=== PATIENT | female | born 1980 | race Caucasian/White ===

== ENCOUNTER → 2018-04-10 14:35 | Outpatient (CLI) | payer OTHER, SELFPAY | PROVIDERS: Visit Provider Physician Assistant | DX: R30.0 Dysuria (principal) | CPT/HCPCS: 87077; 87086; 87186 ==

== ENCOUNTER → 2018-06-06 08:52 | Outpatient (CLI) | payer OTHER, SELFPAY ==
--- NOTE | 2018-06-06 08:52 | DI.US.S_ITS ---
ULTRASOUND OF LEFT BREAST: 06/06/2018 CLINICAL: Nipple discharge, left breast, not bloody. Comparison is made to exam dated: 06/06/2018 mammogram - [facility]. Real-time and Doppler ultrasound of the left breast were performed. Leigh scale images of the real-time examination were reviewed. There is a 1.5 x 1.2 x 1.1 cm complex cyst or cystic mass in the retroareolar region of the left breast central to the nipple. This complex cyst or cystic mass demonstrates internal septations, a 0.4 x 0.3 x 0.3 echogenic component with posterior shadowing that may represent calcifications or a soft tissue component, and appears to communicate with a dilated retroareolar breast duct. There is a 0.9 x 0.5 x 0.5 cm oval indistinct hypoechoic possible mass in the left breast at 5 o'clock position 5 cm from the nipple that was initially detected on ultrasound but subsequently resolved over the course of the exam and could no longer be seen at exam conclusion. No other masses or abnormalities were identified on this exam. IMPRESSION: SUSPICIOUS OF MALIGNANCY - FOLLOW-UP RECOMMENDED 1) 1.5 cm complex cyst or cystic mass in the retroareolar left breast, which may be related to the patient's reported left nipple discharge. An ultrasound guided biopsy is recommended. If the pathology from this biopsy does not adequately explain the reported findings or does not contain the calcifications seen on comparison mammography, a stereotactic biopsy at that time may be considered if clinically warranted. 2) 0.9 cm possible mass in the left breast at 5 o'clock position 5 cm from the nipple that was initially detected on ultrasound but subsequently resolved over the course of the exam and could no longer be seen at exam conclusion; this may have represented collected debris within a dilated duct. Consider follow-up diagnostic ultrasound in 6 months if this finding is not adequately explained by the biopsy suggested above. These results and recommendations were discussed with the patient at the time of the exam by Dr. Antonio Hays of [facility] in person. This exam was interpreted at Station ID: [id number]. Electronically Signed By: Steve Serrano M.D. ecl/:06/06/2018 19:27:36 letter sent: Biopsy Required Ultrasound BI-RADS: 4a Suspicious abnormality - low suspicion for malignancy
--- NOTE | 2018-06-06 08:52 | DI.MG.S_ITS ---
BILATERAL DIGITAL DIAGNOSTIC MAMMOGRAM 3D/2D: 06/06/2018 CLINICAL: Baseline exam. Left breast discharge. No prior exams were available for comparison. The tissue of both breasts is heterogeneously dense. This may lower the sensitivity of mammography. There is a 1.0 cm oval indistinct focal asymmetry in the left breast central to the nipple at retroareolar depth with associated 0.3 cm area of grouped punctate calcifications. There is a 0.5 cm oval circumscribed focal asymmetry in the lower outer left breast at posterior depth. No other significant masses, calcifications, or other findings are seen in either breast. IMPRESSION: INCOMPLETE: NEEDS ADDITIONAL IMAGING EVALUATION 1) 1.0 cm focal asymmetry in the left breast central to the nipple at retroareolar depth with associated 0.3 cm area of grouped punctate calcifications. This may be related to patient's reported left breast discharge. Targeted ultrasound recommended for further evaluation. 2) 0.5 cm focal asymmetry in the lower outer left breast at posterior depth. Targeted ultrasound recommended for further evaluation. This exam was interpreted at Station ID: [id number]. NOTE: For mammograms, a report in lay terms will be sent to the patient. Approximately 15% of breast malignancies will not be visualized mammographically. In the management of a palpable breast mass, a negative mammogram must not discourage biopsy of a clinically suspicious lesion. Electronically Signed By: Steve Serrano M.D. ecl/:06/06/2018 19:13:46 letter sent: Additional Imaging Needed ACR BI-RADS Category 0: Incomplete 3340F
== END ==
PROVIDERS: Visit Provider Physician Assistant
DX: R92.1 Mammographic calcification found on diagnostic imaging of breast (principal); N64.52 Nipple discharge; N60.02 Solitary cyst of left breast
CPT/HCPCS: 76642; 77066; G0279

== ENCOUNTER → 2018-07-01 12:35 | Outpatient (CLI) | payer OTHER, SELFPAY ==
--- NOTE | 2018-07-01 | PATH_ITS ---
Note [facility] Accession Number: [id number] TESTS RESULT FLAG UNITS REF RANGE LAB Clinician Provided Cytology Information No. of containers..01 ThinPrep Vial 01 LEFT BREAST CYST DIAGNOSIS: LEFT BREAST CYST INCONCLUSIVE. PAPILLARY GROUPS WITH APOCRINE CHANGE ARE PRESENT. FINDINGS ARE SUSPICIOUS FOR A PAPILLARY LESION WITH APOCRINE FEATURES. A CELL BLOCK IS REVIEWED. Pathologist ICD10: 02 N63.20 02 Peggy Edwards MD, Pathologist NPI- [id number] Red Robles, Pump Installer ([facility]) 01 0.5 CC, BROWN, CLOUDY /LCS FLAG LEGEND: L-Low Normal,H-High Normal,LL-Alert Low,HH-Alert High <-Panic Low,>-Panic High,A-Abnormal,AA-Critical Abnormal Performed at: 01 =Z [facility] [address], [place] [address] Jac Larsen MD, 02 LCLWA [facility] [address] [place] [id number] Lokesh Dutta MD, Performed at: 01 [facility] [address], [place], [place] [id number] MD Jac Larsen MD Phone: [phone]
--- NOTE | 2018-07-01 | DI.US.S_ITS ---
ULTRASOUND GUIDED ASPIRATION LEFT BREAST: 07/01/2018 CLINICAL: Cyst aspiration left breast. Correlation is made to exams dated: 06/06/2018 ultrasound and 06/06/2018 mammogram [facility]. An aspiration was performed for the complex cyst located in the left breast central to the nipple in the retroareolar region. The skin was prepped in the usual manner. The abnormality was approached from the lateral aspect. Needle was percutaneously placed into the abnormality under ultrasound guidance. Once the needle was documented to be in the correct location, 0.5 cc of fluid was aspirated. IMPRESSION: ASPIRATION HIGH RISK BENIGN Aspiration of the cyst in the left breast central to the nipple in the retroareolar region was successful. Pathology results demonstrate findings suspicious for a papillary lesion with apocrine features. An ultrasound guided core needle biopsy is recommended. Findings were discussed with Dr. South's nurse on 07/08/18 at 3:30 PM. This exam was interpreted at Station ID: [id number]. Vimal fox,ddp/:07/08/2018 15:34:59
== END ==
PROVIDERS: PCP Physician Assistant; Visit Provider Physician Assistant
DX: N60.02 Solitary cyst of left breast (principal); N63.20 Unspecified lump in the left breast, unspecified quadrant
CPT/HCPCS: 10022; 76942

== ENCOUNTER → 2018-07-24 09:06 | Outpatient (CLI) | payer OTHER, SELFPAY ==
--- NOTE | 2018-07-24 | DI.US.S_ITS ---
ULTRASOUND OF LEFT BREAST: 07/24/2018 CLINICAL: Mass prviosly aspirated. Path came back inconclusive. Pt here for core biopsy today but we cannot clearly see target. Patient to come back for 6 month follow-up. Comparison is made to exams dated: 07/01/2018 aspiration, [facility]2018 [facility] and real-time ultrasound of the left breast were performed on the areas of interest. Leigh scale images of the real-time examination were reviewed. The cystic lesion (prev. aspirated) in the left breast central to the nipple in the retroareolar region is no longer seen. Color flow imaging demonstrates that there is no vascularity present. Therefore no biopsy was able to be performed. IMPRESSION: PROBABLY BENIGN These results and recommendations were discussed with the patient at the time of the exam by Dr. Mcarthur in person. The patient was advised to monitor her breasts and to return for repeat ultrasound sooner, should anything grow or change, or reappearance of nipple discharge. A follow-up ultrasound in 6 months is recommended to confirm no recurrence of cystic lesion in the left breast retroareolar region. This exam was interpreted at Station ID: [id number]. Electronically Signed By: Pasha michael/:07/24/2018 11:48:35 letter sent: Followup Recommended Ultrasound BI-RADS: 3 Probably benign
== END ==
PROVIDERS: PCP Physician Assistant; Visit Provider Family Medicine
DX: R92.8 Other abnormal and inconclusive findings on diagnostic imaging of breast (principal); R89.7 Abnormal histological findings in specimens from other organs, systems and tissues
CPT/HCPCS: 76642

== ENCOUNTER → 2019-03-13 08:43 | Outpatient (CLI) | payer OTHER, SELFPAY ==
--- NOTE | 2019-03-13 08:45 | DI.US.S_ITS ---
LIMITED ULTRASOUND OF LEFT BREAST: 03/13/2019 CLINICAL: Patient returns for a 6 month follow up of the left breast. Comparison is made to exams dated: 03/13/2019 mammogram, 07/24/2018 ultrasound, 07/01/2018 aspiration, 06/06/2018 ultrasound, and 06/06/2018 mammogram - [facility]. Color flow and real-time ultrasound of the left breast 2-5 o'clock region were performed. Leigh scale images of the real-time examination were reviewed. There has been recurrence of a 1.1 cm x 0.6 cm x 1.1 cm irregular cystic lesion in the left breast at 5 o'clock in the retroareolar region since the most recent prior study. This has a serpiginous morphology. No internal debris or mass is found. The size is smaller compared to the original exam where a cystic lesion measuring 1.5 cm was found, but the location is identical and the morphology is similar. No vascularity or shadowing. IMPRESSION: SUSPICIOUS OF MALIGNANCY The 1.1 cm x 0.6 cm x 1.1 cm irregular cyst in the left breast is mildly suspicious. This lesion was previously aspirated with indeterminate results (papillary lesion with apocrine features). On attempt at core biopsy, no lesion was seen. Given lesion recurrence and history of nipple discharge, definitive tissue acquisition/ duct excision is recommended. A surgical consult is recommended. Findings and recommendations were discussed with the patient by Dr Hays at time of exam and subsequently discussed with NELA Santiago in the office of Meggan South by Dr Easley at 14:08 on 03/13/19. This exam was interpreted at Station ID: [id number]. Electronically Signed By: Mihaela new/:03/13/2019 14:10:15 letter sent: Biopsy Required Ultrasound BI-RADS: 4 Suspicious abnormality
--- NOTE | 2019-03-13 08:45 | DI.MG.S_ITS ---
BILATERAL DIGITAL DIAGNOSTIC MAMMOGRAM 3D/2D SHORT-TERM FOLLOW-UP: 03/13/2019 CLINICAL: Short term follow up, due bilateral, Left breast discharge and pain. Comparison is made to exams dated: 07/24/2018 ultrasound, 07/01/2018 aspiration, 06/06/2018 ultrasound, and 06/06/2018 mammogram - [facility]. The tissue of both breasts is heterogeneously dense. This may lower the sensitivity of mammography. Previously seen cluster of calcifications in the retroareolar left breast are no longer visible. No suspicious masses are seen. No significant masses, calcifications, or other findings are seen in either breast. IMPRESSION: INCOMPLETE: NEEDS ADDITIONAL IMAGING EVALUATION No mammographic evldence of malignancy in either breast. Left breast calcifications seen previously have resolved. Ultrasound evaluation of the retroareaolar left breast region is recommended to reevaluate for recurrence of cystic lesion previously seen by ultrasound. This was performed immediately following this exam. This exam was interpreted at Station ID: [id number]. NOTE: For mammograms, a report in lay terms will be sent to the patient. Approximately 15% of breast malignancies will not be visualized mammographically. In the management of a palpable breast mass, a negative mammogram must not discourage biopsy of a clinically suspicious lesion. Electronically Signed By: Mihaela new/:03/13/2019 12:04:07 ACR BI-RADS Category 0: Incomplete 3340F
== END ==
PROVIDERS: PCP Physician Assistant; Visit Provider Physician Assistant
DX: R92.8 Other abnormal and inconclusive findings on diagnostic imaging of breast (principal); N64.4 Mastodynia; N64.52 Nipple discharge; N60.02 Solitary cyst of left breast
CPT/HCPCS: 76642; 77066; G0279

== ENCOUNTER → 2019-04-06 10:49 | Outpatient (CLI) | payer OTHER, SELFPAY ==
--- NOTE | 2019-04-06 10:50 | DI.US.S_ITS ---
LIMITED ULTRASOUND OF LEFT BREAST: 04/06/2019 CLINICAL: Palpable left breast lump by physicianat pre-op appt. Comparison is made to exams dated: 03/13/2019 ultrasound, 03/13/2019 mammogram, 07/24/2018 ultrasound, 07/01/2018 aspiration, 06/06/2018 ultrasound, and 06/06/2018 mammogram - [facility]. Real-time ultrasound of the left breast 12 o'clock region was performed on the area of interest. IMPRESSION: NEGATIVE There is no sonographic evidence of malignancy. There is no abnormality seen in the left breast to correspond with the palpable abnormality at 12 o'clock, however, clinical followup is recommended. This exam was interpreted at Station ID: [id number]. Electronically Signed By: Jac sierra/ella:04/06/2019 13:30:10 letter sent: Clinical Evaluation Ultrasound BI-RADS: 1 Negative
== END ==
PROVIDERS: PCP Physician Assistant; Visit Provider Surgery
DX: N63.21 Unspecified lump in the left breast, upper outer quadrant (principal)
CPT/HCPCS: 76642

== ENCOUNTER 2019-04-22 07:12 | Day surgery (SDC) | payer OTHER, SELFPAY ==
[2019-04-07 09:53] VITALS: BMI 38.6
[2019-04-22] VITALS (7 sets, daily range): BP systolic 126–148; BP diastolic 73–79; PULSE 70–96; RESP 12–19; TEMP 36.3–36.7; O2SAT 97–98; BMI 38.3
--- NOTE | 2019-04-22 | PATH_ITS ---
[facility] Accession Number: [id number] . 01 Material submitted: . breast - LEFT LATERAL BREAST . 01 Clinical history: . BLUE STITCH: 1 SHORT STITCH SUPERIOR 2. LONG STITCH LATERAL 3. DOUBLE STITCH POSTERIOR BLACK . 01 Diagnosis: Left Breast, Lateral, Excision: Focal atypical ductal hyperplasia and focal atypical lobular hyperplasia. Background breast with fibrocytic change, including apocrine cystic metaplasia, small and large benign cysts, collumnar cell change and collumnar cell hyperplasia, usual ductal hyperplasia, duct ectasia, mild stromal sclerosis. Intraductal papilloma. Microcalcifications associated with benign breast parenchyma. Negative for invasive malignancy. 04/27/2019 . 01 Electronically signed: . Rhonda Bermudez MD, Pathologist NPI- [id number] . 01 Gross description: . Received: In formalin, labeled L lateral breast: blue stitch: 1-short stitch superior, 2-long stitch lateral, 3-double stitch posterior. Black stitch: -marked pathologic duct. Specimen: Left partial mastectomy. Weight: 13 grams. Measurement: 1.8 cm anterior to posterior, 4.9 cm medial to lateral, and 3.5 cm superior to inferior. Skin ellipse: Absent. Wire: Two localization wires are present. One enters the central lateral anterior aspect and ends just below the tissue surface of the central lateral anterior aspect. The second wire enters the lateral superoanterior aspect and ends just underneath the tissue surface of the central superoanterior aspect. Margins: Oriented by surgeon with short blue superior suture, long blue lateral suture, double blue posterior suture, and black suture marking the pathologic duct, and is inked as follows: posterior=black; anterior=purple; superior=blue; inferior=green; medial=yellow; lateral=orange; pathologic duct=red. Sliced: Medial to lateral into 14 slices. Lesion: One. Description: Leigh-white firm and irregular. Size: 4.5 x 1.7 x 1.2 cm. Slices involved: Slices 1-11. Biopsy site: No obvious biopsy site is identified and no clips are found. Distance to margins: 1.5 cm from the pathologic duct margin, 0.5 cm from the anterior margin, 0.1 cm from the posterior margin, 0.1 cm from the superior margin, 0.1 cm from the inferior margin, 0.1 cm from the medial margin, and 0.5 cm from the lateral margin. Other: The remaining cut surfaces consist of yellow lobulated adipose tissue. No other nodules, masses or lesions are identified. Fixation time: The specimen was placed in formalin on 04/22/2019 with no time given. The approximate total fixation time is calculated to be 29 hours 30 minutes. Sections: A1: Slice 1 with mass, medial end of specimen, perpendicular. A2: Slice 2 with mass. A3: Slice 3 with mass. A4: Slice 4 with mass. A5: Slice 5 with mass. A6: Slice 6 with mass. A7: Slice 7 with mass. A8: Slice 8 with mass. A9: Slice 9 with mass. A10-A11: Slice 10 with mass, bisected and submitted superior to inferior. A12-A13: Slice 11 with mass, bisected and submitted superior to inferior. A14-A15: Slice 12 with mass, bisected and submitted superior to inferior. A16-A17: Slice 13, tissue lateral to mass, bisected and submitted superior to inferior, no mass grossly identified. A18: Slice 14, lateral end of specimen, perpendicular. Specimen entirely submitted. ([id number]) /MRV . 01 Microscopic: . The specimen is entirely submitted for histologic evaluation. The main findings consist of a complex cystic lesion composed of fibrocystic change with large cystically dilated spaces with usual and apocrine metaplasia. Duct ectasia is present and a small intraductal papilloma (<2mm) is also seen. Background breast parenchyma also contains scattered microcalcifications. No invasive carcinoma is seen. . Focal atypical lobular hyperplasia (block A10) demonstrates loss of membranous staining for E-cadherin. Focal atypical ductal hyperplasia (block A13) demonstrates loss of CK5/6 (abscence of mosaic pattern of staining) and diffuse positivity for Estrogen Receptor (abscence of mosaic pattern of staining). These findings support the diagnoses. All the immunohistochemical stains demonstrate appropriately staining external controls. . * This test was developed and its performance characteristics determined by [facility]. It has not been cleared or approved by the U.S. Food and Drug Administration. The FDA has determined that such clearance or approval is not necessary. This test is used for clinical purposes. It should not be regarded as investigational or for research. . 01 Pathologist provided ICD-10: N60.89, N60.19 . 01 CPT . 966526, C57616, L34514 Performed at: 01 [facility] [address], [place], [place] [id number] MD Jac Larsen MD Phone: [phone]
--- NOTE | 2019-04-22 | DI.MG.S_ITS ---
SPECIMEN LEFT BREAST: 04/22/2019 CLINICAL: Left breast specimen. Correlation is made to exams dated: 04/22/2019 mammogram, 04/22/2019 localization, and 04/06/2019 [facility]. A lumpectomy specimen was imaged for the previous biopsy site located in the left breast at 5 o'clock anterior depth. The specimen includes both localization wires. IMPRESSION: SPECIMEN The imaged specimen includes both localization wires. Waiting for pathology results. A final report will be issued when these become available. Exam was discussed with Dr. Kush Eduardo in the operating room. This exam was interpreted at Station ID: [id number]. Josue Jimenez M.D. slc/:04/22/2019 12:03:38
--- NOTE | 2019-04-22 | DI.MG.S_ITS ---
UNILATERAL LEFT DIGITAL DIAGNOSTIC MAMMOGRAM POST-NEEDLE BIOPSY: 04/22/2019 CLINICAL: Post ultrasound wire localization. Comparison is made to exams dated: 04/22/2019 localization, 03/13/2019 mammogram, 06/06/2018 mammogram, 04/06/2019 ultrasound, and 03/13/2019 ultrasound - [facility]. The tissue of left breast is heterogeneously dense. This may lower the sensitivity of mammography. There is a J tip wire in the appropriate position in the left breast anterior depth at 4:00 o'clock. This is seen in additional views. This correlates with ultrasound findings. There is a J tip wire in the appropriate position in the left breast anterior depth at 5:00 o'clock. This is seen in additional views. This correlates with ultrasound findings. IMPRESSION: POST PROCEDURE MAMMOGRAM FOR MARKER PLACEMENT There was a successful wire localization and placement in the left breast central to the nipple anterior depth at 4:00 o'clock. There was a successful wire localization and placement in the left breast central to the nipple anterior depth at 5:00 o'clock. The patient was sent to surgery for excision. This exam was interpreted at Station ID: [id number]. NOTE: For mammograms, a report in lay terms will be sent to the patient. Approximately 15% of breast malignancies will not be visualized mammographically. In the management of a palpable breast mass, a negative mammogram must not discourage biopsy of a clinically suspicious lesion. Electronically Signed By: Josue Jimenez M.D. slc/:04/22/2019 09:04:24 ACR BI-RADS Category Post-procedure mammogram for marker placement
--- NOTE | 2019-04-22 07:22 | DI.US.S_ITS ---
MULTIPLE ULTRASOUND GUIDED WIRE LOCALIZATION LEFT BREAST WITH POST ULTRASOUND IMAGIN04/22/2019 CLINICAL: Pre-op wire localization with ultrasound guidance. Correlation is made to exams dated: 04/06/2019 ultrasound, 03/13/2019 ultrasound, 03/13/2019 mammogram, 07/24/2018 ultrasound, 07/01/2018 aspiration, and 06/06/2018 [facility]. A wire localization using ultrasound guidance was performed for the irregular shaped lesion located in the left breast at 4 o'clock anterior depth. The skin was prepped in the usual manner. Local anesthetic was administered to the access site. The localization was approached from the lateral aspect. A J-hook wire was inserted into the targeted area under ultrasound guidance. A sterile dressing was applied to the access site. Post placement ultrasound imaging demonstrates the tip demarcates the superior boundary of the targeted area. A wire localization using ultrasound guidance was performed for the irregular shaped lesion located in the left breast at 5 o'clock anterior depth. The skin was prepped in the usual manner. Local anesthetic was administered to the access site. The localization was approached from the lateral aspect. A J-hook wire was inserted into the targeted area under ultrasound guidance. Post placement ultrasound imaging demonstrates the tip demarcates the inferior boundary of the targeted area. IMPRESSION: WIRE LOCALIZATION Wire localization for the lesion in the left breast at 4 o'clock anterior depth was successful. A surgical excision is recommended. Wire localization for the lesion in the left breast at 5 o'clock anterior depth was successful. A surgical excision is recommended. This exam was interpreted at Station ID: [id number]. Josue Jimenez M.D. slc/:04/22/2019 08:51:22
--- NOTE | 2019-04-22 07:59 | SUR.PREOP ---
To SONDRA, Report to Anna Long RN.
[2019-04-22] MEDS: LACTATED RINGERS 1,000 ML 42 ML IV (08:55)
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
[2019-04-22] MEDS: CEFAZOLIN 2 GM/100 ML FROZ.PIGGY IV (09:30)
[2019-04-22] MEDS: MIDAZOLAM 2 MG/2 ML VIAL IV (09:31)
[2019-04-22] MEDS: BUPIVACAINE 0.25% W/ EPI 30 ML VIAL INJ (10:12)
--- NOTE | 2019-04-22 10:16 | SUR.OPER ---
Supine on padded OR bed, head on pillow, arms secured on padded arm boards at <90 degrees abduction, legs uncrossed, safety belt at thigh, tape over blanket over lower legs.
[2019-04-22] MEDS: ACETAMINOPHEN IV 1,000 MG/100 ML VIAL 400 MG IV (11:04)
--- NOTE | 2019-04-22 12:24 | SUR.PHASEII ---
Recieved report from Teresita Long RN at 1215. Assumed care of pt. pt is awake and alert eating pudding. Sent daughter to the pharmacy for her prescription meds.
--- NOTE | 2019-04-22 13:22 | PM.OP.1 ---
Operative Date/Time/Diagnoses Date of procedure: 04/22/19 Time of procedure: 09:00 Pre-op diagnosis: Unit ductal, unilateral pathologic nipple discharge -left breast Complex recurrent left breast cyst Procedure & Clinicians Procedure: 1) Uni ductal-duct exploration left breast 2) wire localized lumpectomy for removal of complex cyst left breast Indications: 38-year-old woman who smokes presents with pathologic left breast unit ductal unilateral nipple discharge in the setting of a complex recurrence septated cyst also in the left breast Surgeon: Kush Saba Anesthesia Type: General Operative Notes Findings: Bracketing wires fully removed with specimens Pathologic duct identified and successfully cannulated with lacrimal duct probe -this duct was found to direct itself directly into area of complex cyst -as a consequence pathologic duct and bracketed cysts were removed EN bloc Closure Type: primary Specimen(s): other (Pathologic duct with bracketed complexes) Estimated Blood Loss (mL): 10 Procedure in detail: Patient was brought to the operating room she was intubated without incident. A time-out was completed. Again I repeated the patient's breast exam. The palpable indistinct nodule in the upper portion of the breast that I had identified in clinic which had not been found on ultrasound or mammography I could not find clinically with repeat exam. Then proceeded to perform the case. The areolar breast skin boundary was marked on the lateral aspect -the wires were noted to be placed at approximately 4:00 and 5:00 positions exiting the skin approximately 3 cm lateral to the areolar boundary. The breast and nipple were carefully expressed -the site in the upper outer portion of the nipple for the pathologic discharge had been seen in clinic was carefully monitored. A tiny drop of fluid was successfully expressed at the same location. 2 x 5-0 Prolene sutures were placed just medial and lateral of the drop -these were elevated raising up tip of the nipple. Using a small lacrimal duct probe I was able to successfully cannulate the pathologic duct. The lacrimal duct probe was direct would out laterally between the localizing wires -i.e. the pathologic duct emanated from the site of the complex cyst. The decision was then made to remove these both EN bloc. A curvilinear incision was made at the lateral areolar border a small area lower flap was raised leaving a small amount of fatty tissue adherent to the dermis. As a came close to the lacrimal duct probe great care was taken to meticulously dissect out the single pathologic duct. This was then carried more centrally down into the breast tissue freeing the duct from the adjacent ducts. I then directed my attention to removing the pathologic cyst -a small flap was raised laterally until the entry sites of both wires were encountered the wires were then brought into the wound. This established the lateral boundary of the specimen. The superior and inferior margins were then taken after discussion with Radiology which felt that the inferior wire may have been located within the lesion itself took a more generous amount of tissue inferiorly. The pathologic duct was amputated at the level of the skin of the nipple. I palpated the nipple from underneath and did not identify any superficial nodules within it. At this point the specimen was grasped and delivered out of the wound in the posterior margin was taken -the specimen was carefully marked. The pathologic duct was marked with a single black silk suture. Blue suture was then used to orient the specimen -short stitch superior, long stitch lateral, double stitch posterior -was sent off the field and mammography was performed showing both wires fully intact. At this point the cavity was irrigated, local anesthetic was infiltrated into the wound Skin was closed using deep dermal layer followed by monofilament absorbable suture in subcuticular fashion Steri-Strips were applied Patient was extubated brought to PACU without in Complications: none Condition: stable Disposition: PACU Plan for aftercare: Follow-up in clinic
== END 2019-04-22 13:03 | disposition home or self-care (01) ==
PROVIDERS: PCP Physician Assistant; Visit Provider Surgery
PROC: (CPT 19301; principal; 2019-04-22 09:45)
DX: N60.82 Other benign mammary dysplasias of left breast (principal); N64.52 Nipple discharge; F17.210 Nicotine dependence, cigarettes, uncomplicated; N60.12 Diffuse cystic mastopathy of left breast
CPT/HCPCS: 19301; 19120; 19285; 76098; 77065; J0131; J0690; J1100; J1885; J2250; J2405; J2704; J3010